=== PATIENT | female | born 1980 | race Caucasian/White ===

== ENCOUNTER 2017-07-12 09:47 | Emergency (ER) | payer BC ==
[2017-07-12 09:54] VITALS: BP 115/63
--- NOTE | 2017-07-12 10:29 | UC ---
Complaint Female HPI - HPI Summary HPI Summary: 36 year old with urinary complaint. "I think I have a UTI..." c/o dysuria and urgency x 2 days. She takes macrobid post coital for UTI and did take but still with Sx. no flank pain. no fever. no nausea [ End ] - History Of Current Complaint Chief Complaint: UCGU Stated Complaint: URINARY Time Seen by Provider: 07/12/17 10:20 Hx Obtained From: Patient Hx Last Menstrual Period: 09/24/2015, is breatfeeding Onset/Duration: Gradual Onset Timing: Constant Severity Initially: Mild Severity Currently: Moderate Character: Sharp Associated Signs And Symptoms: Positive: Negative - Allergies/Home Medications Allergies/Adverse Reactions: Allergies Allergy/AdvReac Type Severity Reaction Status Date / Time Sulfa Antibiotics Allergy Hives Verified 07/12/17 09:53 PMH/Surg Hx/FS Hx/Imm Hx Previously Healthy: Yes - Surgical History Surgical History: Yes Surgery Procedure, Year, and Place: C-SECT x2 - Family History Known Family History: Positive: None - Social History Occupation: Employed Full-time Lives: With Family Alcohol Use: Rare Substance Use Type: None Smoking Status (MU): Never Smoked Tobacco - Immunization History Most Recent Influenza Vaccination: no Review of Systems Genitourinary: Dysuria, Frequency, Urgency Is Patient Immunocompromised?: No All Other Systems Reviewed And Are Negative: Yes Physical Exam Triage Information Reviewed: Yes Appearance: Well-Appearing, Well-Nourished Vital Signs: Initial Vital Signs Temp 98.3 F 07/12/17 09:50 Pulse 79 07/12/17 09:50 Resp 14 07/12/17 09:50 BP 115/63 07/12/17 09:50 Pulse Ox 99 07/12/17 09:50 Vital Signs Reviewed: Yes Eye Exam: Normal ENT Exam: Normal Dental Exam: Normal Neck exam: Normal Neck: Positive: 1 Respiratory Exam: Normal Cardiovascular Exam: Normal Abdominal Exam: Normal Musculoskeletal Exam: Normal Neurological Exam: Normal Psychological Exam: Normal Skin Exam: Normal Complaint Female Dx - Course Course Of Treatment: allergy to bactrim, failed macrobid, discussed cephalexin but patient tolerated and prefers to take cipro since it works and no SE previously and will take probiotics and f/u with PCP - Differential Dx/Diagnosis Differential Diagnosis/HQI/PQRI: Ureteral Stone, Urinary Tract Infection Provider Diagnoses: UTI Discharge - Discharge Plan Condition: Good Disposition: HOME Prescriptions: Ciprofloxacin TAB* [Cipro 250 MG Tab*] 250 mg PO BID #6 tab Patient Education Materials: Urinary Tract Infection in Women (ED) Referrals: Rony Amaya NP [Primary Care Provider] - 4 Days
--- NOTE | 2017-07-14 07:29 | UC ---
Progress - Progress Note Progress Note: + moderate amt of group B strep in urine cx. Pt with sx. on cipro. change abx to keflex 500mgs tid x 7 days. f/u with pcp. please call pt
== END 2017-07-12 10:40 | disposition home or self-care (01) ==
LOC: UCCORT 09:47
DX: N39.0 Urinary tract infection, site not specified (principal); Z32.02 Encounter for pregnancy test, result negative; Z88.2 Allergy status to sulfonamides
CPT/HCPCS: 81003; 84702; 87077; 87086; 99212; G0463

== ENCOUNTER 2018-06-25 21:18 | Emergency (ER) | payer BC ==
[2018-06-25 21:54] VITALS: BP 120/71
[2018-06-25] MEDS ORDERED: Cephalexin CAP* 500 MG PO ONE ×2 (22:15)
--- NOTE | 2018-06-25 22:21 | UC ---
Complaint Female HPI - HPI Summary HPI Summary: 37-year-old woman coming in with 3 days of dysuria. The symptoms remind her of urinary tract infection. She has a great deal of urgency. Denies fevers or chills. No suprapubic pain or flank pain. Denies concern of STI. She usually takes prophylactic Macrobid after intercourse but she did not do that the most recent time which was several days ago. - History Of Current Complaint Chief Complaint: UCGU Stated Complaint: URINARY Time Seen by Provider: 06/25/18 22:07 Hx Last Menstrual Period: 05/25/18 Pain Intensity: 0 - Allergies/Home Medications Allergies/Adverse Reactions: Allergies Allergy/AdvReac Type Severity Reaction Status Date / Time Sulfa (Sulfonamide Allergy Hives Verified 06/25/18 21:52 Antibiotics) Home Medications: Home Medications Pumpkin Seed Extract/Soy Germ [Azo Bladder Control Capsule] 300 mg PO DAILY [History Confirmed 06/25/18] PMH/Surg Hx/FS Hx/Imm Hx - Additional Past Medical History Additional PMH: RECURRENT UTIS - Surgical History Surgical History: Yes Surgery Procedure, Year, and Place: C-SECT x2 - Family History Known Family History: Positive: None Negative: Cardiac Disease, Diabetes - Social History Alcohol Use: Rare Substance Use Type: None Smoking Status (MU): Never Smoked Tobacco - Immunization History Most Recent Influenza Vaccination: no Review of Systems Constitutional: Negative Skin: Negative Eyes: Negative ENT: Negative Respiratory: Negative Cardiovascular: Negative Gastrointestinal: Negative Genitourinary: Dysuria, Frequency, Urgency Motor: Negative Neurovascular: Negative Musculoskeletal: Negative Neurological: Negative Psychological: Negative Is Patient Immunocompromised?: No All Other Systems Reviewed And Are Negative: Yes Physical Exam Triage Information Reviewed: Yes Appearance: Well-Appearing, No Pain Distress, Well-Nourished Vital Signs: Initial Vital Signs Temp 97.7 F 06/25/18 21:49 Pulse 71 06/25/18 21:49 Resp 16 06/25/18 21:49 BP 120/71 06/25/18 21:49 Pulse Ox 99 06/25/18 21:49 Vital Signs Reviewed: Yes Eye Exam: Normal Eyes: Positive: Conjunctiva Clear Neck exam: Normal Neck: Positive: Supple Respiratory: Positive: Lungs clear, Normal breath sounds, No respiratory distress Cardiovascular: Positive: RRR Abdomen Description: Positive: Nontender. Negative: CVA Tenderness (R), CVA Tenderness (L) Musculoskeletal Exam: Normal Musculoskeletal: Positive: Strength Intact, ROM Intact, No Edema Neurological Exam: Normal Neurological: Positive: Alert Psychological Exam: Normal Skin Exam: Normal Complaint Female Dx - Course Course Of Treatment: Patient reports that she normally gets treated with Keflex for her urinary tract infections. Urine culture is pending. - Differential Dx/Diagnosis Provider Diagnoses: UTI Discharge - Sign-Out/Discharge Documenting (check all that apply): Patient Departure All imaging exams completed and their final reports reviewed: No Studies - Discharge Plan Condition: Stable Disposition: HOME Prescriptions: Cephalexin CAP* [Keflex CAP*] 500 mg PO QID #26 cap Patient Education Materials: Urinary Tract Infection in Women (ED) Referrals: Rony Amaya NP [Primary Care Provider] - Additional Instructions: FOLLOW UP WITH YOUR DOCTOR IF NOT COMPLETELY IMPROVED. GET RECHECKED FOR ANY WORSENING OF YOUR CONDITION OR QUESTIONS OR CONCERNS. - Billing Disposition and Condition Condition: STABLE Disposition: Home
--- NOTE | 2018-06-28 07:35 | UC ---
- Progress Note Progress Note: no growth urine culture okay to d/c abx Discharge - Sign-Out/Discharge Documenting (check all that apply): Post-Discharge Follow Up All imaging exams completed and their final reports reviewed: No Studies - Discharge Plan Condition: Stable Disposition: HOME Prescriptions: Cephalexin CAP* [Keflex CAP*] 500 mg PO QID #26 cap Patient Education Materials: Urinary Tract Infection in Women (ED) Referrals: Rony Amaya NP [Primary Care Provider] - Additional Instructions: FOLLOW UP WITH YOUR DOCTOR IF NOT COMPLETELY IMPROVED. GET RECHECKED FOR ANY WORSENING OF YOUR CONDITION OR QUESTIONS OR CONCERNS. - Billing Disposition and Condition Condition: STABLE Disposition: Home
== END 2018-06-25 22:29 | disposition home or self-care (01) ==
LOC: UCCORT 21:18
DX: N39.0 Urinary tract infection, site not specified (principal); Z88.2 Allergy status to sulfonamides
CPT/HCPCS: 84702; 87086; 99212; A9270-GY; G0463